=== PATIENT | male | born 1980 | race Caucasian/White ===

== ENCOUNTER 2017-03-15 09:41 | Outpatient (CLI) | payer OTHER ==
[2017-03-15] MEDS ORDERED: GADOBUTROL 10 MMOL/10 ML VIAL IVP ONE (10:26)
--- NOTE | 2017-03-15 15:51 | MRI Preliminary Report ---
Exam: MRI Brain W/WO Impressions: 1. No acute or subacute ischemic change. 2. Potentially trivial with matter disease left retrolenticular white matter. Brain, orbits otherwise negative. 3. Otic capsule contents demonstrate thinning of the bony septa overlying the superior semicircular c anal on the left. There does however appear to be a thin bony septa present as seen by prior CT orbit s 12/08/2015 as detailed. Correlate with neurological exam findings. 4. Postcontrast imaging negative. [facility] SITE ID: [id number]
--- NOTE | 2017-03-15 15:54 | MRI Report ---
EXAM: MRI BRAIN AND INTERNAL AUDITORY CANAL (IAC) EXAM DATE: 03/15/2017 10:37 AM. CLINICAL HISTORY: Left-sided hearing loss. Dizziness. COMPARISON: Prior CT study orbits 12/08/2015. TECHNIQUE: Multiplanar, multisequence T1-weighted and fluid-sensitive MRI sequences of the brain and IACs were performed. Other: None. IV Contrast: 10 cc Gadavist. Findings: Relevant images are indicated (image number, series number). There is no acute or subacute ischemic changes in the brain. There is no hemorrhage, mass or midline shift. Bilateral Meckel's caves, bilateral IACs are unremarkable. The lateral temporal lobes also are unremarkable. There is no cortical atrophy. The ventricles are not dilated. Potential trivial left r etrolenticular white matter disease appears present. Orbital contents negative. Mild left frontal, mo derate anterior left ethmoidal sinus mucosal thickening. The pituitary, midbrain, infundibulum, crani ocervical junction, limited evaluation upper cervical cord negative. Cisternal segments of the major cranial nerves appear unremarkable. Cochlea, vestibule, semicircular canals appear unremarkable bilat erally. There is asymmetrical thickening of the bony septa overlying the left superior semicircular c anal, this is evident on prior CT orbits coronal reconstructed imaging from 12/08/2015 image 114 on s eries 6. Postcontrast imaging demonstrates no abnormal enhancement of the brain, meninges. Impressions: 1. No acute or subacute ischemic change. 2. Potentially trivial with matter disease left retrolenticular white matter. Brain, orbits otherwise negative. 3. Otic capsule contents demonstrate thinning of the bony septa overlying the superior semicircular c anal on the left. There does however appear to be a thin bony septa present as seen by prior CT orbit s 12/08/2015 as detailed. Correlate with neurological exam findings. 4. Postcontrast imaging negative. [facility] Referring Provider Line: [phone] SITE ID: [id number]
== END 2017-03-15 09:42 | disposition home or self-care (01) ==
LOC: DI 09:41
PROVIDERS: ATTEND Otolaryngology Facial Plastic Surgery
DX: R90.82 White matter disease, unspecified (principal)
CPT/HCPCS: 70553; A9585